=== PATIENT | male | born 1950 ===

== ENCOUNTER → 2021-08-30 | Outpatient (CLI) | payer SELFPAY | END | disposition home or self-care (01) | LOC: LAB SHORT 11:35 | DX: C44.41 Basal cell carcinoma of skin of scalp and neck (principal) | CPT/HCPCS: 88305 ==

== ENCOUNTER → 2023-03-20 | Outpatient (CLI) | payer MEDICARE, BC | LOC: PLD 12:01 → LAB SHORT 12:01 | DX: C44.612 Basal cell carcinoma of skin of right upper limb, including shoulder (principal); C44.519 Basal cell carcinoma of skin of other part of trunk | CPT/HCPCS: 88305 ==